=== PATIENT | female | born 1995 | race Hispanic/Latino ===

== ENCOUNTER 2018-07-29 16:19 | Emergency (ER) | payer OTHER ==
[2018-07-29] MEDS ORDERED: HYDROXYZINE HCL 25 MG TABLET ONE (16:37)
== END 2018-07-29 18:30 | disposition home or self-care (01) ==
LOC: EDH 16:19
DX: F41.9 Anxiety disorder, unspecified (principal); R00.2 Palpitations; F41.0 Panic disorder [episodic paroxysmal anxiety]
CPT/HCPCS: 93005

== ENCOUNTER 2018-10-29 08:35 | Emergency (ER) | payer OTHER ==
[2018-10-29 10:01] LABS: BASOPHILS % (AUTO) 0.8 % (0.0-5.0); EOSINOPHILS % (AUTO) 3.4 % (0.0-8.0); HEMATOCRIT 34.9 % (36-48); MEAN CORPUSCULAR HEMOGLOBIN 24.2 pg (27.0-33.0); MEAN CORPUSCULAR VOLUME 75.8 fL (79-99); MONOCYTES % (AUTO) 6.4 % (3.0-13.0); NEUTROPHILS % (AUTO) 71.4 % (40.0-77.0); PLATELET COUNT (AUTO) 361 K/uL (130-400); RED BLOOD CELL COUNT(AUTO) 4.61 MIL/uL (4.00-5.50); RED CELL DISTRIBUTION WIDTH 16.3 % (11.0-15.5); WHITE BLOOD COUNT (AUTO) 10.6 K/uL (4.8-10.8)
[2018-10-29 10:11] LABS: CREATININE 0.6 mg/dL (0.5-1.5)
[2018-10-29 10:24] LABS: ALBUMIN 3.5 g/dL (3.5-5.0); BILIRUBIN,TOTAL 0.2 mg/dL (0.2-1.0); TOTAL PROTEIN, SERUM 7.8 g/dL (6.0-8.3)
[2018-10-29] MEDS ORDERED: DIPHENHYDRAMINE HCL 25 MG CAPSULE ONE (10:32)
[2018-10-29 10:56] LABS: APPEARANCE,URINE Clear (CLEAR); BILIRUBIN,URINE Negative (NEGATIVE); COLOR,URINE Yellow (YELLOW); GLUCOSE, URINE (UA) Negative (NEGATIVE); KETONES,URINE Negative (NEGATIVE); LEUKOCYTE ESTERASE ,URINE Negative (NEGATIVE); NITRATE,URINE Negative (NEGATIVE); OCCULT BLOOD,URINE Moderate (NEGATIVE); PROTEIN,URINE Negative (NEGATIVE); UROBILINOGEN,URINE 0.2 mg/dL (0.2-1.0)
[2018-10-29 10:58] LABS: HCG,QUAL RESULT NEGATIVE (NEGATIVE)
[2018-10-29 11:00] LABS: AMPHET/METH SCREEN,URINE NEGATIVE (NEGATIVE); BARBITURATE SCREEN, URINE NEGATIVE (NEGATIVE); BENZODIAZEPINES SCREEN,URINE NEGATIVE (NEGATIVE); CANNABINOID SCREEN,URINE NEGATIVE (NEGATIVE); COCAINE SCREEN,URINE NEGATIVE (NEGATIVE); OPIATE SCREEN,URINE NEGATIVE (NEGATIVE); PHENCYCLIDINE SCREEN,URINE NEGATIVE (NEGATIVE)
[2018-10-29 11:09] LABS: BACTERIA,URINE None Seen /HPF (None Seen); SQUAMOUS EPITHELIAL CELL,UR 0-2 /HPF (0-2); WBC,URINE None Seen /HPF (0-1)
== END 2018-10-29 11:17 | disposition home or self-care (01) ==
LOC: EDH 08:35
DX: F41.1 Generalized anxiety disorder (principal); R00.2 Palpitations
CPT/HCPCS: 36415; 71046; 80053; 80305; 81001; 81025; 82550; 83690; 84484; 85025; 93005; 99285; Q0163